=== PATIENT | female | born 1985 | race Caucasian/White ===

== ENCOUNTER 2016-11-30 17:22 | Emergency (ER) | payer OTHER ==
[~2016-11-30] VITALS: Ht 160 cm; Wt 110.2 kg
[~2016-11-30 17:22] MED LIST: BENZ100 PO; ONDA1TAB16 PO; TYLETAB34 PO
[2016-11-30 17:34] VITALS: BP 138/70; PULSE 107; RESP 16; TEMP 101.5; O2SAT 100
[2016-11-30 17:55] VITALS: BP 166/72; PULSE 97; RESP 18; TEMP 100.2; O2SAT 98
[2016-11-30] MEDS ORDERED: TOPA50TA7 PO (18:01)
[2016-11-30] MEDS ORDERED: LORC1TAB PO (18:01)
--- NOTE | 2016-11-30 18:06 | PD ---
HPI Chief Complaint: Syncope/Near-Syncope Time Seen by Provider: 17:42 Travel History International Travel<30 days: No Contact w/Intl Traveler<30days: No Traveled to known affect area: No History of Present Illness HPI This 31-year-old female says she been feeling sick since Saturday. In achy and having fever. She has been having chills. Been having intermittent sweating. This morning she was driving and she got very dizzy and lightheaded. She thinks she may have had a momentary loss of consciousness. Reported knocking on her window asking that she was okay. She had been driving at that time she did not crash. She had a headache across her head. She has a history of migraines and takes Topamax. This headache is not like her usual migraine. She has been aching all over. She's been having cough. she has passed out one time previously PFS Past Medical History Bipolar Disorder: Yes Depression: Yes Cancer: No Cardiovascular Problems: Yes Diabetes: No Diminished Hearing: No Endocrine: No Gastrointestinal Disorders: No Genitourinary: No Hepatitis: No Hiatal Hernia: No Hypertension: Yes Immune Disorder: No Kidney Stones: Yes Musculoskeletal: No Neurologic: Yes Psychiatric: No Reproductive: Yes (PCOS) Respiratory: No Immunizations Current: Yes Migraines: Yes Thyroid Disease: No ?: Not LMP: 11/14/16 : 3 Para: 0 Past Surgical History Abdominal Surgery: Yes (CHOLECYSTECTOMY, APPENDECTOMY) AICD: No Cardiac Surgery: No Cholecystectomy: Yes Ear Surgery: No Endocrine Surgery: No Eye Surgery: No Genitourinary Surgery: Yes (RIGHT KIDNEY STENT PLACEMENT) Gynecologic Surgery: No Hysterectomy: Yes (htn states not on meds) Joint Replacement: No Neurologic Surgery: No Oral Surgery: No Pacemaker: No Thoracic Surgery: No Other Surgery: Yes Social History Alcohol Use: No Tobacco Use: No Substance Use: No (PT DENIES) Allergies-Medications (Allergen,Severity, Reaction): Coded Allergies: Hydrocodone (Verified Allergy, Intermediate, Rash, 11/30/16) Latex (Verified Adverse Reaction, Intermediate, Rash, 11/30/16) Reported Meds & Prescriptions Reported Meds & Active Scripts Active Reported Belviq Xr 24 HR (Lorcaserin ER 24 HR) 20 Mg Samm 20 Mg PO DAILY Topamax (Topiramate) 50 Mg Tab 50 Mg PO BID Review of Systems General / Constitutional: Positive: Fever, Chills Eyes: No: Diploplia, Blurred Vision HENT: Positive: Headaches Cardiovascular: No: Chest Pain or Discomfort, Palpitations Respiratory: Positive: Cough Gastrointestinal: Positive: Nausea Genitourinary: No: Urgency, Frequency Musculoskeletal: No: Myalgias, Arthralgias Skin: No Rash Neurologic: Positive: Weakness, Dizziness Hematologic/Lymphatic: No: Easy Bruising Physical Exam Narrative GENERAL: Well-developed female SKIN: Focused skin assessment warm/dry. HEAD: Atraumatic. Normocephalic. EYES: Pupils equal and round. No scleral icterus. No injection or drainage. ENT: No nasal bleeding or discharge. Mucous membranes pink and moist. NECK: Trachea midline. No JVD. Her neck is supple CARDIOVASCULAR: Regular rate and rhythm. No murmur appreciated. RESPIRATORY: No accessory muscle use. Clear to auscultation. Breath sounds equal bilaterally. GASTROINTESTINAL: Abdomen soft, non-tender, nondistended. Hepatic and splenic margins not palpable. MUSCULOSKELETAL: No obvious deformities. No clubbing. No cyanosis. No edema. NEUROLOGICAL: Awake and alert. No obvious cranial nerve deficits. Motor grossly within normal limits. Normal speech. PSYCHIATRIC: Appropriate mood and affect; insight and judgment normal. Data Data Last Documented VS Vital Signs Date Time Temp Pulse Resp B/P Pulse Ox O2 Delivery O2 Flow Rate FiO2 11/30/16 17:55 100.2 97 18 166/72 98 Room Air Orders Electrocardiogram (11/30/16 18:01) Complete Blood Count With Diff (11/30/16 18:01) Basic Metabolic Panel (Bmp) (11/30/16 18:01) Urinalysis - C+S If Indicated (11/30/16 18:01) Magnesium (Mg) (11/30/16 18:01) Influenzae A/B Antigen (11/30/16 18:01) Chest, Single Ap (11/30/16 18:01) Ct Brain W/O Iv Contrast(Rout) (11/30/16 18:01) Sodium Chlor 0.9% 1000 Ml Inj (Ns 1000 M (11/30/16 18:15) Acetaminophen (Tylenol) (11/30/16 18:15) Ondansetron Inj (Zofran Inj) (11/30/16 18:15) Labs Laboratory Tests Test 11/30/16 11/30/16 18:15 18:24 Urine Color YELLOW Urine Turbidity SLIGHT Urine pH 6.0 Urine Specific [place] 1.021 Urine Protein NEG mg/dL Urine Glucose (UA) NEG mg/dL Urine Ketones NEG mg/dL Urine Occult Blood SMALL Urine Nitrite NEG Urine Bilirubin NEG Urine Leukocyte Esterase NEG Urine RBC 3-5 /hpf Urine WBC 0-2 /hpf Urine Squamous Epithelial > 8 /hpf Cells Urine Bacteria OCC /hpf Microscopic Urinalysis Comment CULT NOT INDICATED White Blood Count 6.8 TH/MM3 Red Blood Count 3.80 MIL/MM3 Hemoglobin 11.8 GM/DL Hematocrit 34.4 % Mean Corpuscular Volume 90.5 FL Mean Corpuscular Hemoglobin 30.9 PG Mean Corpuscular Hemoglobin 34.2 % Concent Red Cell Distribution Width 11.5 % Platelet Count 209 TH/MM3 Mean Platelet Volume 9.5 FL Neutrophils (%) (Auto) % Lymphocytes (%) (Auto) % Monocytes (%) (Auto) % Eosinophils (%) (Auto) % Basophils (%) (Auto) % Neutrophils # (Auto) TH/MM3 Lymphocytes # (Auto) TH/MM3 Monocytes # (Auto) TH/MM3 Eosinophils # (Auto) TH/MM3 Basophils # (Auto) TH/MM3 CBC Comment AUTO DIFF Differential Total Cells 100 Counted Neutrophils % (Manual) 71 % Band Neutrophils % 6 % Lymphocytes % 16 % Monocytes % 6 % Eosinophils % 1 % Neutrophils # (Manual) 5.2 TH/MM3 Differential Comment FINAL DIFF MANUAL Platelet Estimate NORMAL Platelet Morphology Comment NORMAL Red Cell Morphology Comment NORMAL Sodium Level 140 MEQ/L Potassium Level 4.5 MEQ/L Chloride Level 109 MEQ/L Carbon Dioxide Level 22.3 MEQ/L Anion Gap 9 MEQ/L Blood Urea Nitrogen 8 MG/DL Creatinine 0.94 MG/DL Estimat Glomerular Filtration 70 ML/MIN Rate Random Glucose 88 MG/DL Calcium Level 8.9 MG/DL Magnesium Level 1.9 MG/DL [facility] Medical Decision Making Medical Screen Exam Complete: Yes Emergency Medical Condition: Yes Medical Record Reviewed: Yes Differential Diagnosis Differential includes viral syndrome, subarachnoid hemorrhage, vasovagal syncope , influenza Narrative Course History influenza is negative. CT of the brain is negative. White count is normal. Patient has been given some IV fluids. She appears to be a viral illness. She'll be released with recommendations Tylenol and Motrin for fever Diagnosis Primary Impression: Viral syndrome Additional Instructions: Tylenol and/or Motrin for fever and pain Scripts Promethazine-Codeine Liq 6.25-10 Mg/5 Ml Syrp10 Ml PO Q4H PRN (COUGH AND/OR COLD SYMPTOMS) 5 Days Ref 0 Prov:Bret Ochoa MD 11/30/16 Disposition: 01 DISCHARGE HOME Condition: Stable Bret Ochoa MD Nov 30, 2016 18:06
[2016-11-30] MEDS ORDERED: ONDANSETRON HCL 4 MG/2 ML VIAL IV PUSH ONE (18:15)
[2016-11-30] MEDS ORDERED: ACETAMINOPHEN 500 MG CPLT PO ONE (18:15)
[2016-11-30] MEDS ORDERED: SODIUM CHLOR 0.9% 1000 ML INJ 1,000 ML IV ONE (18:15)
[2016-11-30 18:31] LABS: HEMATOCRIT 34.4 % (35.0-46.0); MEAN CELL VOLUME 90.5 FL (80.0-100.0); MEAN CORPUSCULAR HEMOGLOBIN 30.9 PG (27.0-34.0); MEAN CORPUSCULAR HGB CONC 34.2 % (32.0-36.0); PLATELET COUNT 209 TH/MM3 (150-450); RED CELL DISTRIBUTION WIDTH 11.5 % (11.6-17.2); WHITE BLOOD COUNT 6.8 TH/MM3 (4.0-11.0)
[2016-11-30 18:33] LABS: HEMO FLAGS AUTO DIFF
--- NOTE | 2016-11-30 18:33 | RADHPO ---
EXAM DATE/TIME: 11/30/2016 18:21 [facility] COMPARISON: CHEST SINGLE AP, August 07, 2016, 20:43. INDICATIONS : Cough, fever, headache, and syncope. MEDICAL HISTORY : Hypertension. SURGICAL HISTORY : None. ENCOUNTER: Initial ACUITY: 3 days PAIN SCORE: 7/10 LOCATION: Bilateral chest FINDINGS: A single view of the chest demonstrates the lungs to be symmetrically aerated without evidence of mas s, infiltrate or effusion. The cardiomediastinal contours are unremarkable. Osseous structures are intact. CONCLUSION: No acute disease. Km Jay MD on November 30, 2016 at 18:31 Board Certified Radiologist. This report was verified electronically.
[2016-11-30 18:36] LABS: BLOOD, URINE SMALL (NEG); GLUCOSE,URINE NEG (NEG); KETONE, URINE NEG (NEG); NITRITE,URINE NEG (NEG)
[2016-11-30 18:40] LABS: BICARBONATE 22.3 MEQ/L (21.0-32.0); MAGNESIUM 1.9 MG/DL (1.5-2.5)
[2016-11-30 18:43] LABS: POTASSIUM 4.5 MEQ/L (3.5-5.1)
[2016-11-30 18:45] LABS: BANDS 6 % (0-6); EOSINOPHILS 1 % (0-4); NEUTROPHIL # MANUAL DIFF 5.2 TH/MM3 (1.8-7.7); POLYS (SEG NEUTROPHILS) 71 % (16-70); WBC DIFF SAMPLE 100
[2016-11-30 18:46] LABS: PLATELET ESTIMATE SMEAR NORMAL (NORMAL); PLATELET MORPHOLOGY NORMAL (NORMAL); SCAN/DIFF FINAL DIFF MANUAL
[2016-11-30 18:49] LABS: BACTERIA, URINE OCC /hpf; COMMENT (UR) CULT NOT INDICATED; CULTURE IF INDICATED CULT NOT INDICATED; SQUAMOUS EPITHELIAL CELL URINE > 8 /hpf (0-5); URINE COLOR YELLOW (YELLW/STRAW); WBC, URINE 0-2 /hpf (0-5)
--- NOTE | 2016-11-30 19:30 | RADHPO ---
EXAM DATE/TIME: 11/30/2016 19:08 [facility] COMPARISON: CT BRAIN W/O CONTRAST, August 23, 2015, 16:26. INDICATIONS : Syncopal episode. Nausea, vomiting, and fever. RADIATION DOSE: 59.83 CTDIvol (mGy) MEDICAL HISTORY : Hypertension. SURGICAL HISTORY : Hysterectomy. ENCOUNTER: Initial ACUITY: 1 day PAIN SCALE: 7/10 LOCATION: occipital TECHNIQUE: Multiple contiguous axial images were obtained of the head. Using automated exposure control and adj ustment of the mA and/or kV according to patient size, radiation dose was kept as low as reasonably a chievable to obtain optimal diagnostic quality images. FINDINGS: CEREBRUM: The ventricles are normal for age. No evidence of midline shift, mass lesion, hemorrhage or acute in farction. No extra-axial fluid collections are seen. POSTERIOR FOSSA: The cerebellum and brainstem are intact. The 4th ventricle is midline. The cerebellopontine angle i s unremarkable. EXTRACRANIAL: The visualized portion of the orbits is intact. SKULL: The calvaria is intact. No evidence of skull fracture. CONCLUSION: No acute disease. Km Jay MD on November 30, 2016 at 19:22 Board Certified Radiologist. This report was verified electronically.
[2016-11-30] MEDS ORDERED: PROM6.256 PO (19:59)
--- NOTE | 2016-12-02 21:27 | EKG ---
Date Performed: 11/30/2016 Time Performed: 18:13:58 PTAGE: 31 years EKG: Sinus rhythm Normal ECG PREVIOUS TRACING : 03/27/2016 08.17 DOCTOR: Hosea Mascorro Interpretating Date/Time 12/02/2016 21:23:23
== END 2016-11-30 20:23 | disposition home or self-care (01) ==
LOC: PHED 17:22
DX: B34.9 Viral infection, unspecified (principal); I10 Essential (primary) hypertension; G43.909 Migraine, unspecified, not intractable, without status migrainosus; Z87.442 Personal history of urinary calculi
CPT/HCPCS: 70450; 71010; 80048; 81001; 83735; 85007; 85027; 87804; 93005; 96374; 99284; J2405; J7030